=== PATIENT | female | born 1985 | race Caucasian/White ===

== ENCOUNTER 2021-04-17 06:43 | Emergency (ER) | payer OTHER, SELFPAY ==
--- NOTE | ~2021-04-17 | XR_ITS ---
EXAMINATION: [id number]_[id number]_CR DATE: 04/17/2021 07:50 INDICATION: Neck injury and pain. TECHNIQUE: 3 views of cervical spine were obtained. COMPARISON: None. FINDINGS: Bone alignment is normal. Vertebral body heights are normal. There is mildly decreased disc height at C5-C6. The facet joints are unremarkable. There is mild central canal stenosis at C5-C6. N o prevertebral soft tissue swelling. IMPRESSION: 1. Mild cervical spondylosis. Reviewed, dictated and finalized at location A.
[2021-04-17 07:02] VITALS: TEMP 36.6
--- NOTE | 2021-04-17 08:21 | ED.GENADULT ---
HPI - General Adult General Chief complaint: Neck Pain/Injury Stated complaint: neck/back injury Time Seen by Provider: 04/17/21 06:58 History of Present Illness HPI narrative: Patient is a 35-year-old female who presents ER with left neck pain. Reports she was lifting some Gatorade onto a shelf at work at [employer] when she developed sudden onset pain. No shoulder near the cervical spine. Sharp. Does not allow her to look up or look down. She has tried ibuprofen without improvement. No focal weakness of an arm or leg. No numbness or tingling. Was sent here by her work today to be seen. Related Data Allergies Allergy/AdvReac Type Severity Reaction Status Date / Time aspirin Allergy Severe Swelling Verified 04/17/21 07:08 Review of Systems Constitutional: Constitutional: Denies chills and Denies fever(s) Cardiovascular: Cardiovascular: Denies chest pain and Denies radiating jaw, neck or arm pain Musculoskeletal: Musculoskeletal: Reports back pain (Neck cervical), Denies joint swelling and Reports muscle cramps Neurologic: Denies focal weakness and Denies numbness PMFSH Past Medical History Medical History (Updated 04/17/21 @ 08:30 by Jhon Santos MD) Healthy female adult Surgical History Surgical History (Updated 04/17/21 @ 08:27 by Jhon Santos MD) H/O breast surgery Tumor excision Exam Narrative: Exam Narrative: GENERAL: Well-appearing, well-nourished, and in no acute distress. HEAD: Normocephalic, atraumatic. Neck: TTP left trapizius muscluature, normal head rotation left to right. Mild difficulty with looking up and down. CHEST: Clear to auscultation. No respiratory distress. HEART: Regular rate and rhythm. Normal peripheral pulses. EXTREMITIES: Normal range of motion. No edema. SKIN: Warm, dry, no rash. NEURO: Alert and oriented x3. PSYCH: Normal mood and affect. Course Course Emergency Course: D/c with lifting restriction. Patient is able to take ibuprofen without issue. Will also give muscle relaxer. Vital Signs Vital signs: Vital Signs Temperature 97.9 F 04/17/21 07:02 Temperature 97.9 F 04/17/21 07:02 Medical Decision Making Vital Signs Vital Signs: Vital Signs Temperature 97.9 F 04/17/21 07:02 Temperature 97.9 F 04/17/21 07:02 Imaging Data Radiologist's impression: ITS Impressions Cervical Spine X-Ray 04/17/21 08:00 IMPRESSION: 1. Mild cervical spondylosis. Discharge Plan Discharge Clinical Impression: Strain of neck muscle Patient Disposition: Home, Self-Care Condition: Stable Instructions: Cervical Strain (ED) Additional Instructions: Return the ER if you suffer new injury, you have focal weakness or numbness of an arm or leg, you develop fever over 100.4 ?F, you have additional concerns. Prescriptions: New cyclobenzaprine 10 mg tablet 10 mg PO TID PRN (Reason: muscle spasm) Qty: 20 RF: 0 ibuprofen 600 mg tablet 600 mg PO TID Qty: 20 RF: 0 Follow-up/Referrals: Sunita Carroll MD [Physician] - 1 Week PHYSICIAN,AFFIRMATIVE ACTION SPECIALIST [Primary Care Provider] - Stand Alone Forms: Work/School Release IP
== END 2021-04-17 08:49 | disposition home or self-care (01) ==
PROVIDERS: Emergency Provider Emergency Medicine
DX: S16.1XXA Strain of muscle, fascia and tendon at neck level, initial encounter (principal); M47.812 Spondylosis without myelopathy or radiculopathy, cervical region; X50.0XXA Overexertion from strenuous movement or load, initial encounter
CPT/HCPCS: 72040; 99283

== ENCOUNTER 2023-11-27 01:04 | Day surgery (SDC) | payer OTHER, SELFPAY ==
[2023-11-18 13:38] VITALS: BMI 26.7
--- NOTE | 2023-11-18 13:39 | PC.NURSE ---
Report to the Outpatient Waiting Room, entrance under the green pavilion located off [facility], at time _1130_ on date _[id number]_. Planned Procedure Time: _130pm_. Time changes happen often and if your time is changed the preop area will call you the afternoon before. - You and your visitor will be asked to self-screen and do not enter if you have any COVID symptoms. - A mask is optional within the hospital at this time. Patients may have clear liquids (water, carbonated beverages, clear teas, apple juice) until 3 hours prior to surgery with a maximum of 20 ounces. - No food from midnight until time of surgery Take the following medications with a SIP of water the morning of surgery: ___None DO NOT STOP ANY OF YOUR OTHER PRESCRIPTION MEDICATIONS PRIOR TO SURGERY ?EXCEPT THE FOLLOWING Medications to discontinue per physician None Date to take last dose Please no make-up, nail kittitian, hairspray, perfume, deodorant, or body powder the day of surgery. No jewelry (including any body piercings) or valuables the day of surgery, leave them at home. Please take a shower or bath the night before, or the morning of, surgery with an antibacterial soap. Wear comfortable, loose fitting clothing. - Jewelry must be removed prior to entering the operating room. Rings and piercings that are not removed may be cut off. - The hospital will not accept responsibility for valuables. - Please leave all valuables, including medications, at home the day of surgery. If you are going home after surgery, a licensed septic pump truck driver must drive you home. - NO public transportation without another adult if you receive anesthesia. - We recommend that an adult stay with you for 24 hours following discharge. - We also recommend that you do not drive, make important decision, drink alcoholic beverages, or take any drugs that were not prescribed by your health care provider for at least 24 hours after your discharge time. Follow any additional instructions given to you from your surgeon. If you or anyone in your household have experienced Covid symptoms in the past week, please notify your surgeon or the nurse liaison at the phone number below for possible testing. Telephone instructions given to __Angelica and asked if any additional questions and then verbalized understanding. Patient advised to call surgeon office or pre surgery nurse liaison [phone] if any additional questions.
[2023-11-27] VITALS (9 sets, daily range): BP systolic 94–134; BP diastolic 58–87; PULSE 68–92; RESP 10–16; TEMP 31.1–36.6; O2SAT 94–100
--- NOTE | 2023-11-27 13:19 | WPDHPUPDATE1 ---
History and Physical Update Update Date/Time: 11/27/23 13:19 History and Physical has been reviewed, including an updated exam of the patient. There are NO changes in the patient's condition. Risks, benefits, and alternatives have been discussed and questions answered. Patient agrees to proceed with procedure.
--- NOTE | 2023-11-27 13:19 | W.PM.PROC2 ---
Procedure Note - Detailed Date of Procedure 11/27/23 Pre-op Diagnosis micromastia Post-op Diagnosis Same Procedure Performed Bilateral augmentation mammaplasty Surgeon Terell Cedillo MD Anesthesia General Findings Bilateral Cecy [employer]hesive Implants 445cc Right: REF# [id number] SN [id number] Left: REF# [id number] SN [id number] Description of Procedure She is here today for bilateral breast augmentation. Previously and again today the risks, benefits, alternatives were discussed in extensive detail. I wanted her to be very realistic about the risks involved as well as expectations. We discussed aftercare and what to monitor for. Made sure answered all of her questions to her satisfaction today and consent was obtained. Marked in the preoperative holding area with their verification. The patient was taken to the operating room placed supine on the operating table. Anesthesia was provided by anesthesiology. A surgical time-out was taken. We cleansed the skin and 1% lidocaine and 0.25% Marcaine with epinephrine was used anesthetize as a field block. She was prepped and draped in a standard sterile fashion. Tegaderm nipple Triana were placed. A 15 blade used to make an incision along the inframammary fold. Dissection was continued at 45 degree angle until the chest wall as identified. I incised the pectoralis major along its inferior border and completely released the inferior border leaving the medial border intact. I created a subpectoral pocket in the appropriate dimensions based on our preoperative planning for the implant. I then copiously irrigated with saline solution and verified a strict hemostasis. Next the use a triple antibiotic and Betadine containing solution to irrigate the pocket. I washed my gloves with the triple antibiotic and Betadine solution. We washed the implant immediately upon opening it with this solution and only opened it when we needed it. I used implant funnel and no-touch technique. The implant was introduced into the pocket using the funnel. Having verified positioning of the implant this was closed using 2-0 PDS followed by 3-0 Monocryl in a running subcuticular 4-0 Monocryl followed by tissue glue. Fluffs and surgical bra were placed. Patient was awoke and taken to PACU without difficulty. All instrument sponge counts were correct at the end of the case. Estimated Blood Loss 50 Drains No Packing No Pathology None sent Complications No immediate complications Condition Stable Disposition PACU
--- NOTE | 2023-11-27 13:38 | P.PNAN_ITS ---
Anes - Initial Pre Proc Eval Procedure: Operation Date: 11/27/23 13:30 Proposed Procedures p Bilateral Breast Augmentation - Terell Cedillo MD Date/Time: 11/27/23 13:38 Surgeon: Terell Cedillo MD Pre Op Diagnosis: micromastia Patient Data Age: 38 Gender: F Height: 1.57 m Weight: 64 kg Last Vital Signs Temp 97.6 F 11/27/23 11:42 Pulse 68 11/27/23 11:42 Resp 16 11/27/23 11:42 BP 133/68 11/27/23 11:42 Pulse Ox 100 11/27/23 11:42 O2 Del Method Room Air 11/27/23 11:42 Allergies Allergy/AdvReac Type Severity Reaction Status Date / Time aspirin Allergy Severe Swelling Verified 11/27/23 11:46 Home Medications Medication Instructions Recorded Confirmed Type cyclobenzaprine 10 mg tablet 10 mg PO TID PRN muscle spasm #20 04/17/21 Rx tabs ibuprofen 600 mg tablet 600 mg PO TID #20 tabs 04/17/21 Rx Patient hx anesthesia problems: none Family hx anesthesia problems: none Results Review: All pre-operative results and documents have been reviewed as part of the pre- operative evaluation. [facility] Past Medical History Medical History (Updated 04/18/21 @ 00:01 by Missy Chery) Healthy female adult Surgical History Surgical History (Updated 04/17/21 @ 08:27 by Jhon Santos MD) H/O breast surgery Tumor excision Social History Social History Smoking packs per day: 0.75 Smoking cigarettes per day: 15.0 Years smoked: 20 Smoking pack-years: 15.00 Smoking status: Former smoker Tobacco type: cigarettes Smoking end date: 10/05/23 Living arrangements: with family Spiritual care concerns: No Anes - Eval Final PreProcedure Day of Procedure 11/27/23 13:38 Patient weight: normal Heart: regular rate and rhythm Lungs: clear to auscultation Airway: Mallampati scale class II Neurological: alert and oriented Last oral intake: >/= 8 hours ASA classification: II Emergent: no Anesthetic plan: proceed Anesthesia type and monitoring: general ETT and standard monitoring Results Review: All pre-operative results and documents have been reviewed as part of the pre- operative evaluation. Informed Consent: The patient's anesthetic plan and its attendant risks and benefits were discussed with the patient/family/POA. Questions were solicited and answers provided to the satisfaction of the patient/family/POA.
[2023-11-27] MEDS: ceFAZolin 2 GM/D5W 50 ML 2 GM/50 ML BAG IVPB (13:53)
[2023-11-27] MEDS: LIDO 1%/EPINEPHRINE 1:100,000 50 ML VIAL 40 ML INFILTRATE (13:58)
[2023-11-27] MEDS: BUPivacaine HCL 0.25% PF 30 ML VIAL INFILTRATE (13:58)
[2023-11-27] MEDS: TRANEXAMIC ACID 1,000MG/ISO100 1,000 MG/100 ML BAG 200 MG IVPB (14:02)
[2023-11-27] MEDS: NACL 0.9% IRRIG POUR BOTTLE 900 ML, GENTAMICIN SULFATE INJ 160 MG, ceFAZolin 2 GM, POVI... IRRIGATION (14:11)
--- NOTE | 2023-11-27 14:41 | SUR.OPER ---
BILATERAL BREAST SCM 445CC RIGHT SN [id number], LEFT [id number] EXO 2928-06-28.
[2023-11-27] MEDS: LACTATED RINGERS 1,000 ML 30 ML IV CONT ×2 (15:00)
[2023-11-27] MEDS: fentaNYL CITRATE INJ (*CRX) 100 MCG/2 ML VIAL 25 MCG IV PUSH ×8 (15:15→15:29)
[2023-11-27] MEDS: HYDROmorphone HCL INJ (*CRX) 1 MG/ML SYR 0.5 MG IV PUSH ×4 (15:38→16:10)
[2023-11-27] MEDS: oxyCODONE HCL (*CRX) 5 MG TAB IR PO (16:38)
== END 2023-11-27 17:15 | disposition home or self-care (01) ==
PROVIDERS: PCP Family Medicine; Visit Provider Surgery Plastic and Reconstructive Surgery
PROC: (CPT 19325; principal; 2023-11-27 13:30)
DX: Z41.1 Encounter for cosmetic surgery (principal); N64.82 Hypoplasia of breast; Z87.891 Personal history of nicotine dependence
CPT/HCPCS: 19325; A9270; J0690; J1100; J1170; J1580; J2250; J2405; J2704; J3010; J7120